=== PATIENT | male | born 1980 | race Caucasian/White ===

== ENCOUNTER 2017-07-27 09:40 | Emergency (ER) | payer SELFPAY ==
[2017-07-27 12:05] LABS: APPEARANCE HAZY (CLEAR); BILIRUBIN NEGATIVE (NEGATIVE); COLOR YELLOW (YELLOW); GLUCOSE NEGATIVE (NEGATIVE); KETONE NEGATIVE (NEGATIVE); NITRITE NEGATIVE (NEGATIVE); PROTEIN NEGATIVE (NEGATIVE); UROBILINOGEN NORMAL (NORMAL)
[2017-07-27 12:16] LABS: BACTERIA FEW /hpf (NONE SEEN); EPITHELIAL CELLS OCC /hpf (0-5); HYALINE CAST OCC /lpf (NONE SEEN); MUCUS >1+ /lpf (NONE SEEN); RED CELLS - URINE >50 /hpf (0-5); WHITE CELLS - URINE 0-5 /hpf (0-5)
== END 2017-07-27 11:51 | disposition home or self-care (01) ==
LOC: D.ER 09:40
PROVIDERS: Emergency Medicine
DX: N20.1 Calculus of ureter (principal); N23 Unspecified renal colic

== ENCOUNTER 2018-05-04 07:04 | Emergency (ER) | payer BC ==
[~2018-05-04] VITALS: Ht 172.7 cm; Wt 104.5 kg
[2018-05-04 07:07] VITALS: BP 132/79; Ht 172.7 cm; Wt 104.5 kg
[2018-05-04] MEDS ORDERED: AUGMENTIN 875-11 TAB PO (07:19)
== END 2018-05-04 07:23 | disposition home or self-care (01) ==
LOC: D.ER 07:04
DX: B34.9 Viral infection, unspecified (principal)